=== PATIENT | female | born 1985 | race Caucasian/White ===

== ENCOUNTER 2024-11-17 12:10 | Outpatient (AMB) | payer MEDICARE, SELFPAY ==
--- NOTE | 2024-11-17 12:25 | A.OFFVIS_ITS ---
Intake Visit Reasons: 3 Month Migrane Allergies No Known Allergies Allergy (Verified 11/17/24 12:32) Medication List - Last Reconciled 11/17/24 by Leila Galindo CNP lamotrigine 150 mg PO BID norethindrone (contraceptive) (Emzahh) 0.35 mg PO DAILY prazosin 1 mg PO BID sertraline 200 mg PO DAILY sumatriptan succinate mg PO topiramate 25 mg PO BID HPI Comments Details: 39-year-old woman with depression, anxiety, PTSD, insomnia, and migraine headaches. Migraines were about the same. She was getting headache about 3x/week with photophobia, sonophobia, and nausea. They could be triggered by the heat. Sumatriptan as needed helped some. Sleep was up and down. [facility] Medical History (Updated 11/17/24 @ 12:27 by Leila Galindo CNP) Migraine without aura Review of Systems Const Denies chills, Denies daytime sleepiness, Denies difficulty sleeping, Denies fatigue, Denies fever(s), Denies frequent falls, Reports headache(s), Denies increased appetite, Denies poor appetite, Denies snoring, Denies weakness, Denies weight gain and Denies weight loss Eyes Denies loss of vision ENT Denies vertigo, Denies dizziness and Reports headache(s) Card Denies chest pain at rest, Denies chest pain with activity, Denies syncope, Denies leg edema and Denies palpitations Resp Denies snoring GI Denies constipation, Denies heartburn, Denies diarrhea and Denies nausea Denies urinary frequency, Denies urinary incontinence and Denies urinary urgency Musc Denies abnormal gait, Denies numbness and Denies tingling Skin/Breast Denies dry skin and Denies rash Neuro Denies abnormal gait, Denies vertigo, Denies dizziness, Denies syncope, Denies frequent falls, Reports headache(s), Denies lack of coordination, Denies loss of vision, Denies memory loss, Denies numbness, Denies restless legs, Denies seizure-like activity, Denies tingling, Denies paresthesias, Denies tremor(s) and Denies weakness Psych Denies anxiety, Denies depression, Denies auditory hallucinations, Denies memory loss, Denies visual hallucinations and Denies suicidal ideation Endo Denies fatigue and Denies palpitations Physical Exam Const Other: General Appearance:? normal, in no acute distress. Skin:? no rashes, no significant birthmarks. Heart:? S1, S2 normal, no murmurs. Lungs:? clear anteriorly and posteriorly. Extremities:? no edema. Psych:? alert, oriented, cognitive function intact, cooperative with exam. Neuro Other: Mental Status:?Normal attention, orientation, memory and affect.? Cranial Nerves:?Pupils are equal, round and reactive to light. External occular muscles are intact. Visual crowe are full. Face is symmetrical. Facial sensations are normal. Tongue is midline. Palate elevates symmetrically. Shoulder shrugging is normal. Hearing to bedside conversation is normal. Sensory Exam:?....? Coordination:?No ataxia,?no titubation.? Gait Exam: Within normal limits. Extrapyramidal System:?No tremor, rigidity with normal facial expressions.? Pronator Drift:?Not present.? Involuntary Movements:?No tremors seen.? Speech:?Normal.? Assessment & Plan Assessment & Plan (1) Migraine without aura: Code(s): G43.009 - Migraine without aura, not intractable, without status migrainosus Category: Medical Qualifiers: Status migrainosus presence: without status migrainosus Intractability: not intractable Qualified Code(s): G43.009 - Migraine without aura, not intractable, without status migrainosus Plan: Increase topiramate 50mg 1 tablet twice a day. Continue sumatriptan 50mg 1 tablet as needed for migraine. Start ondansetron 4mg 1 tablet as needed for nausea, use/side effects reviewed. Medications: New sumatriptan succinate take 1 tab at onset of headache; if no relief may repeat 1 tab after at least 2 hrs; PO 10 tabs 5RF 30 days topiramate 50 mg PO BID 180 tabs 0RF 90 days ondansetron 4 mg PO DAILY PRN 10 tabs 5RF nausea and vomiting 30 days Discontinued sumatriptan succinate Discontinued Reason: Order PO Coding Level of Care Code Est Pt Level 4 (31973) Diagnoses Migraine without aura and without status migrainosus, not intractable G43.009 Status migrainosus presence: without status migrainosus Intractability: not intractable
--- OUTSIDE RECORDS SUMMARY | 2024-11-17 13:32 | XMS_ITS | Clinical Summary ---
Author Organization [facility] Address [address] [place] [address] Phone Care Team Providers Care Regional Marketing Manager Name Role Phone Lamin Villavicencio MD Primary Care Provider [phone] Allergies No known active allergies Medications melatonin 5 mg tablet Take 1 Tablet by mouth. 02/13/2022 Active hydrOXYzine pamoate (VISTARIL) 25 mg capsule TAKE 1 CAPSULE BY MOUTH two (2) times a day NEEDED FOR ANXIETY 11/16/2021 Active lamoTRIgine (LaMICtal) 100 mg tablet TAKE 1 TABLET BY MOUTH two (2) times a day 05/30/2022 Active melatonin 3 mg capsule Take by mouth. Active prazosin (MINIPRESS) 1 mg capsule TAKE 1 TO 3 CAPSULES BY MOUTH AT BEDTIME NEEDED 04/30/2023 Active sertraline (ZOLOFT) 100 mg tablet Take 1 Tablet by mouth daily. 05/07/2023 Active topiramate (TOPAMAX) 25 mg tablet Take 1 Tablet by mouth. 06/05/2022 Active amitriptyline (ELAVIL) 10 mg tablet 12/16/2023 Active meloxicam (MOBIC) 15 mg tablet 11/11/2023 Active phentermine (ADIPEX-P) 37.5 mg tablet Take 1 tablet (37.5 mg total) by mouth 1 (one) time each day before breakfast. Max Daily Amount: 37.5 mg 02/28/2024 Active norethindrone (ANGÉLICA ROSUE H EATHER,MICRONOR ) 0.35 mg tablet Take 1 tablet (0.35 mg total) by mouth 1 (one) time each day. 28 tablet 11 05/12/2024 05/11/19 26 Active Active Problems Problem Noted Date Diagnosed Date Depression 03/03/2024 Overview (03/03/2024): Receives counseling services @ [facility]. PCOS (polycystic ovarian syndrome) 10/09/2017 Immunizations Name Administration Dates Next Due HepB-CpG (Heplisav-B) 18yo and older 07/19/2023, 07/18/2022 Hepatitis A-Hepatitis B Adul t (Twinrix) 18yo and older 06/17/2012 Hepatitis B Pediatric (Enger ix B; Recombivax HB) to less than 20 yo 12/18/2012,06/17/2012,05/20/2012 Influenza Quadravalent, MDCK , 0.5ml, preservative free (Flucelvax) 6mo and older 01/02/2023,01/18/2022 Influenza Quadrivalent, 0.5m l, preservative free (Fluarix; FluLaval; Fluzone) ages 6mo and older (Afluria) 3yo and older 01/16/2021,12/27/2017,01/17/2017 Influenza trivalent, 0.5mL, preservative free (Fluarix; FluLaval; Fluzone) ages 6mo and older (Afluria) 3 years and older 12/15/2014 Influenza trivalent, recombi nant, 0.5mL, preservative free (Flublok) 9yo and older 01/10/2024 Influenza trivalent, with pr eservative (Fluzone; Afluria) 6mo and older 01/30/2014,01/07/2014 Influenza, live, intranasal, quadrivalent (FluMist) 2yo to less than 50yo 01/18/2022 Pfizer SARS-CoV-2 COVID-19, mRNA, LNP-S, preservative free 07/27/2020,07/06/2020 Td Tetanus diptheria, preser vative free (Tenivac) 7yo and older 12/27/2017 Td, Unspecified 12/27/2017 Tdap Tetanus diptheria acell ular pertussis (Boostrix; Adacel) 7yo and older 02/28/2019 Surgical History Surgery Date Site/Laterality Comments HAND SURGERY 2011 Left PROCEDURE: HISTORICAL HAND SURGERY; COMMENT: left 5th finger FOOT SURGERY 2019 Right PROCEDURE: HISTORICAL FOOT SURGERY; COMMENT: cut to the sole requiering stiches OTHER SURGICAL HISTORY 2022 PROCEDURE: HISTORY OTHER; COMMENT: gallbladder CHOLECYSTECTOMY Medical History Medical History Date Comments Depression DX:Depression Anxiety DX:Anxiety Carpal tunnel syndrome DX:Carpal tunnel syndrome Mental developmental delay 11/22/2010-present DX: Mental developmental delay Vitamin D deficiency 06/07/2015-present DX:Vitamin D deficiency 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 DX:Insomnia due to anxiety and fear Polycystic ovary syndrome Migraine Family History Medical History Relation Name Comments No Known Problems Brother Arthritis Mother Valeria aranda Diabetes Mother Valeria aranda No Known Problems Sister x4 Other: autism Son Breast cancer Neg Hx Colon cancer Neg Hx Ovarian cancer Neg Hx Uterine cancer Neg Hx Relation Name Status Comments Brother Alive Father Alive Mother Valeria aranda Alive Sister x4 Alive Son Social History Tobacco Use Types Packs/Day Years Used Date Smoking Tobacco: Former Cigarettes 3 15 Q uit: 01/01/2014 Smokeless Tobacco: Never Alcohol Use Standard Drinks/Week Comments No 0 (1 standard drink = 0.6 oz pur e alcohol) Housing Instability Answer Date Recorde d Are you worried that in the next 2 months you may not have stable housing? No 05/09/2024 Food Access & Nutrition Answer Date Rec orded Do you have access to a vari ety of food including fruits and vegetables? No 05/09/2024 Access to Healthcare Answer Date Record ed Within the last 3 months, ho w many times did you visit the emergency department for your medical care? 0 05/09/2024 Health Literacy Answer Date Recorded How often do you need to hav e someone help you when you read instructions, pamphlets, or other written material from your doctor or pharmacy? Sometimes 05/09/2024 Caregiver: How often do you need to have someone help you when you read instructions, pamphlets, or other written material from your doctor or pharmacy? Not on file 05/09/2024 Financial Risk Answer Date Recorded How hard is it for you to pa y for the very basics like food, housing, medical care, and air conditioning / heating? Somewhat hard 05/09/2024 Transportation Answer Date Recorded Has the lack of transportati on kept you from meetings, work, or from getting things needed for daily living? No Has the lack of transportati on kept you from medical appointments or from getting medications? No 05/09/2024 Social Isolation Answer Date Recorded How often do you feel lonely or isolated from those around you? Sometimes 05/09/2024 Food Risk Answer Date Recorded Within the past 12 months we worried whether our food would run out before we got money to buy more. Often true 05/09/2024 Within the past 12 months th e food we bought just didn't last and we didn't have money to get more. Often true 05/09/2024 Dependent Care Answer Date Recorded Do you need help finding or paying for care for your loved ones. For example, child care giver or elderly care for an older adult? No 05/09/2024 Education Answer Date Recorded Do you think completing more education or training, like finishing a GED, going to college, or learning a trade, would be helpful for you? N/A 05/09/2024 Employment and Income Answer Date Recor ded During the last four weeks, have you been actively looking for work? Patient declined 05/09/2024 Living Situation Answer Date Recorded What is your living situation? 0 05/09/2024 Comments No Sex and Gender Information Value Date Recorded Sex Assigned at Female 11/03/2024 12:59 PM EDT Legal Sex Female 6:15 AM EST Gender Identity Female 11/03/2024 12:59 PM EDT Sexual Orientation Straight 11/03/2024 12 :59 PM EDT Occupation Industry Job Start Date Job End Date Disabled Not on file Not on file Not on file Obstetrics History Para Term AB IAB SAB Ectopic Multiple Livin g Live Births 2 2 2 2 2 Date Outcome GA Total Labor Labor/2nd/3rd Weight Sex Type Anes PTL Delilah A1 A5 Name Clin 2011 Term F Vag-S pont Living 2013 Term M Vag-S pont Living Last Filed Vital Signs Vital Sign Reading Time Taken Comments Blood Pressure 106/75 05/12/2024 10:50 AM EST Pulse 70 05/12/2024 10:50 AM EST Temperature - - Respiratory Rate - - Oxygen Saturation - - Inhaled Oxygen Concentration - - Weight 89.8 kg (198 lb) 05/12/2024 10:50 AM EST Height 157.5 cm (5' 2 ) 05/12/2024 10:50 AM EST Body Mass Index 36.21 05/12/2024 10:50 AM EST Plan of Treatment Upcoming Encounters Date Type Department Care Team (Late st Contact Info) Description 12/10/2024 1:30 PM EDT Office Visit Obstetrics & Gynecology - [address] [id number] Lolita Stafford, CNM [address] [place] [address] Health Maintenance Due Date Last Done Comments COVID-19 Vaccine ( season) 2023 07/19/2023, 02/10/2022, 02/22/2021, Additional history exists Cervical Cancer Screening: HPV 11/25/2024 11/26/2019 Influenza Vaccine (#1) 2024 , 01/02/2023, 01/18/2022, Additional history exists Social Influencers of Health Screening 05/09/2025 05/09/2024 Cholesterol Screening (Lipid Panel) 07/19/2027 07/18/2022, 07/18/2022, 05/16/2017 DTaP,Tdap,and Td Vaccines (4 - Td or Tdap) 02/28/2029 02/28/2019, 12/27/2017, 12/27/2017 Hepatitis A Vaccines Aged Out 06/17/2012 No long er eligible based on patient's age to complete this topic HIV Screening Completed 11/26/2019, 05/16/2017 Hepatitis C Screening Completed 03/21/2021, 021 Hepatitis B Vaccines Completed 07/19/2023, 07/18/2022, 12/18/2012, Additional history exists Depression Screening Completed 05/09/2024 HIB Vaccines Aged Out No longer eligi ble based on patient's age to complete this topic HPV Vaccines Aged Out No longer eligi ble based on patient's age to complete this topic IPV Vaccines Aged Out No longer eligi ble based on patient's age to complete this topic MMR Vaccines Aged Out No longer eligi ble based on patient's age to complete this topic Meningococcal ACWY Vaccine Aged Out N o longer eligible based on patient's age to complete this topic Meningococcal B Vaccine Aged Out No l onger eligible based on patient's age to complete this topic Pneumococcal Vaccine: Pediatrics (0 to 5 Years) and At-Risk Patients (6 to 49 Years) Aged Out No longer eligible based on patient's age to complete this topic RSV Immunization Patients Under 20 months Aged Out No longer eligible based on patient's age to complete this topic Varicella Vaccines Aged Out No longer eligible based on patient's age to complete this topic Procedures Procedure Name Priority Date/Time Associated Diagnosis Comments LIPID PANEL Routine 07/18/2022 HEPATITIS C SCREENING Routine 03/21/2021 HPV Routine 11/26/2019 HIV SCREENING Routine 11/26/2019 from Last 3 Months or Most Recently Relevant to Health Maintenance Results * Lipid panel (07/18/2022) [facility] LDL/HDL Ratio 0 Comment:No Interpretation, A bstracted Triglycerides 0 mg/dL Comment:No Interpretation, A bstracted Cholesterol 0 mg/dL Comment:No Interpretation, A bstracted HDL 0 mg/dL Comment:No Interpretation, A bstracted LDL Cholesterol 0 mg/dL Comment:No Interpretation, A bstracted Blood Venous blood specimen / Unknown us Historical Provider LAB BLOOD ORDERABLES Tatyana l Result * Hepatitis C Screening (03/21/2021) [facility] Hepatitis C Screening Abstracted us Historical Provider HEALTH MAINTENANCE Final Result * Cervical Cancer Screening: HPV (11/26/2019) [facility] Cervical Cancer Screening: HPV Negative, Abstracted us Historical Provider HEALTH MAINTENANCE Final Result * HIV Screening (11/26/2019) HIV Screening Abstracted Historical Provider HEALTH MAINTENANCE Final Result from Last 3 Months or Most Recently Relevant to Health Maintenance Insurance MEDICA[place] - [place] [facility] Advance Directives Documents on File Type Date Recorded 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
--- OUTSIDE RECORDS SUMMARY | 2024-11-17 13:32 | XMS_ITS | Clinical Summary ---
Author Organization [facility] Address [address] [place] [address] Care Team Providers Care Job Analysis Manager Name Role Phone Sadie Corbin PA-C Primary Care Provider + [phone] Source Comments PLEASE NOTE, if this patient is a minor, it may be UNLAWFUL to discuss sensitive information that is contained in these records (such as FAMILY PLANNING, MENTAL HEALTH or SUBSTANCE ABUSE) with the minor patient's parent or other person without the patient's specific authorization.[facility] Allergies No known active allergies Medications arm brace (NEOPRENE WRIST SPLINT SUPPORT)Indicat ions:Paresthesi a of hand, bilateral Bilateral cock up wrist splints given 01/18/20 17 Active miscellaneous medical supply miscIndications :Carpal tunnel syndrome, bilateral by miscellaneous route nightly at bedtime Carpal tunnel hands wrist support brace to use during the night. Right and left hand wrist need it. 1 Each 09/18/19 22 Active prazosin (MINIPRESS) 1 mg capsule Take 1 mg by mouth nightly at bedtime 05/31/19 24 Active lamoTRIgine (LAMICTAL) 200 mg tablet Take 200 mg by mouth once daily Active sertraline (ZOLOFT) 100 mg tabletIndicatio ns:Anxiety and depression Take 1 Tablet by mouth once daily 30 Tablet 07/19/19 24 Active melatonin 5 mg tab Take 1 Tablet by mouth nightly at bedtime 90 Tablet 1 02/12/20 24 Active meloxicam (MOBIC) 15 mg tabletIndicatio ns:Carpal tunnel syndrome, bilateral Take 1 Tablet by mouth once daily 30 Tablet 05/12/19 25 Active clindamycin-mary kay zoyl peroxide (BENZACLIN) 1-5 % gelIndications: Acne, unspecified acne type Apply topically 2 (two) times daily 50 g 07/29/19 25 Active topiramate (TOPAMAX) 25 mg tabletIndicatio ns:Persistent headaches Take 1 Tablet by mouth nightly at bedtime. 30 Tablet 3 10/25/19 25 Active SUMAtriptan succinate (IMITREX) 100 mg tablet Take 100 mg by mouth. Active tirzepatide, weight loss, (ZEPBOUND) 2.5 mg/0.5 mL pnijIndications :Class 2 obesity without serious comorbidity with body mass index (BMI) of 36.0 to 36.9 in adult, unspecified obesity type Inject 2.5 mg into the skin once a week For obesity. 2 mL 10/29/19 25 Active hydrOXYzine pamoate (VISTARIL) 25 mg capsule TAKE 1 CAPSULE BY MOUTH two (2) times a day NEEDED FOR ANXIETY 11/17/19 22 025 Discontinu ed(Patient Stopped Taking) phentermine (ADIPEX-P) 37.5 mg tabletIndicatio ns:Class 2 obesity without serious comorbidity with body mass index (BMI) of 36.0 to 36.9 in adult, unspecified obesity type Take 1 Tablet by mouth every morning before breakfast 30 Tablet 2 01/10/20 24 025 Discontinu ed(Therapy completed/ Not needed) topiramate (TOPAMAX) 25 mg tabletIndicatio ns:Persistent headaches Take 1 Tablet by mouth nightly at bedtime 30 Tablet 3 05/12/19 25 025 Discontinu ed(Reorder (E-Cancel Not Sent)) Active Problems Problem Noted Date Diagnosed Date Foot pain, right,plantar 07/12/2019 Overview (10/07/2019): 09/28/2019: [facility]: Xray of rt foot: Impression: 1. No significant osseous abnormality. 2. Focal skin thickening along the plantar aspect of the foot in the area of interest, unchanged from the previous study. 04/13/2019: [facility]: Xray of rt foot: IMPRESSION: Mild soft tissue swelling at the plantar aspect of the midfoot. Otherwise, normal examination. No radiopaque foreign body is seen. No change since 02/28/2019. 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 The uterus is normal in size but demonstrated heterogeneous echotexture. NO uterine mass is seen. 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 She is taking vitamins. Desires referral to reproductive endocrine. 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 Mild-moderate on L and mild on the right. ON LEFT: nerve conduction study evidence of focal sensory and motor fiber demyelination and sensory axon loss. There is EMG evidence of chronic degeneration affecting the L abductor pollicis brevis muscle. ON RIGHT: there is focal sensory > motor fiber demyelination without axon loss. 02/25/18 - [facility] OT - 2x/wk x 9 visits 09/25/21: EMG results [facility] on 08/29/21. Impression: -Mild to moderate left, mild right median neuropathy across the carpal tunnel Vitamin D deficiency 06/07/2015 Anxiety and depression 11/22/2010 Overview (06/07/2015): Psych f/u [facility]. Mental developmental delay 11/22/2010 Insomnia due to anxiety and fear 11/22/2010 Obesity Fracture of phalanx of left little finger Overview (12/17/2012): Displaced fracture left small finger middle phalanx S/p ORIF 05/23/[address] Schneider at [facility]. Encounters Date Type Department Care Team Description 11/05/2024 Results Follow-Up [address] [phone] Sultana Diaz FNP 10/28/2024 1:20 PM EDT Office Visit [address] [phone] Sultana Diaz FNP from Last 3 Months Immunizations Immunization Administration Dates Next Due Flu, Cell Culture based, Pre servative Free, 6m+, Flucelvax 01/18/2022 Flu, Preservative Free 01/16/2021,12/27/2017, HEP A-HEP B ([place]) 06/17/2012 HEP B, PED/ADOL (MILJTSQ-M-WHDL/RECOMBIVAX-PEDS) 12/18/2012,06/17/2012,05/20/2012 Hep B,adult,adjuvanted (HEPLISAV) 07/19/2023, INFLUENZA, SEASONAL, INJECTABLE 01/03/20 23,12/15/2014,01/30/2014,2013,11/29/2012 INFLUENZA, SEASONAL, INJECTA BLE, PRESERVATIVE FREE 12/15/2014 Influenza (FLUBLOK),recombinant,injectable,pres ervative Free 01/10/2024 Pfizer COVID-19 (Comirnaty), Mrna, Lnp-s, Pf, Sherif-sucrose, 30 Mcg/0.3 Ml, 12yr+ 07/19/2023 TDAP 02/28/2019 Td (adult), 5 Lf tetanus tox oid (Tenivac), preservative free 12/27/2017 Family History Medical History Relation Name Comments Diabetes Father Diabetes Maternal Grandmother Arthritis Mother Diabetes Mother Relation Name Status Comments Father Alive Maternal Grandmother Alive Mother Alive Social History Tobacco Use Types Packs/Day Years Used Date Smoking Tobacco: Former Cigarettes Smokeless Tobacco: Never Tobacco Cessation:Counseling Given: Not Answered Comments:quit in Aug 2013 Alcohol Use Standard Drinks/Week Comments Not Currently 0 (1 standard drink = 0.6 oz pur e alcohol) socc Social Connections Answer Date Recorded How often do you feel lonely or isolated from th ose around you? 1 03/09/2024 Financial Resource Strain Answer Date R ecorded Hard to pay for: Food 1 03/09/2024 Stress Answer Date Recorded Do you feel these kinds of stress these days? 1 03/09/2024 Physical Activity Answer Date Recorded Physical Activity 0 11/22/2018 Food Insecurity Answer Date Recorded Hard to pay for: Food 1 03/09/2024 Transportation Needs Answer Date Record ed Hard to pay for: Transportation 1 03/09/2024 Housing Stability Answer Date Recorded Hard to pay for: Rent/Mortgage payment 1 03/09/2024 Safety and Environment Answer Date Preet rded Safety 1 07/19/2023 Utilities Answer Date Recorded Hard to pay for: Utilities 1 03/09 Employment Answer Date Recorded Stress 0 06/19/2021 Comments No Sex and Gender Information Value Date Recorded Sex Assigned at Female 01/17/2017 1:28 PM PDT Legal Sex Female 11:36 AM PDT Gender Identity Female 01/17/2017 1:28 PM PDT Sexual Orientation Straight 01/17/2017 1: 28 PM PDT Occupation Industry Job Start Date Job End Date Unemployed Not on file Not on file Not on file Last Filed Vital Signs Vital Sign Reading Time Taken Comments Blood Pressure 112/78 10/28/2024 1:10 PM EDT Pulse 78 10/28/2024 1:10 PM EDT Temperature 36.9 C (98.5 F) 10/28/2024 1:10 PM EDT Respiratory Rate 16 10/28/2024 1:10 PM EDT Oxygen Saturation 98% 10/28/2024 1:10 PM EDT Inhaled Oxygen Concentration - - Weight 93 kg (205 lb) 10/28/2024 1:10 PM EDT Height 160 cm (5' 3 ) 10/28/2024 1:10 PM EDT Body Mass Index 36.31 10/28/2024 1:10 PM EDT Plan of Treatment Upcoming Encounters Date Type Department Care Team (Late st Contact Info) Description 12/07/2024 1:00 PM EDT Office Visit [facility] [address] [place] [phone] Celina Vail [address] [place] [address] Health Maintenance Due Date Last Done Comments Dental FMX/Pano 1986 Medicare Annual Wellness Visit 2004 Pap Smear 10/03/2021 10/03/2018, 01/28/2015 Cervical Cancer Screening 10/04/2023 HPV Screening 10/04/2023 10/03/2018 Pap + HPV 10/04/2023 10/03/2018 [id number] ( season) 2023 07/19/2023, 02/10/2022, 02/22/2021, Additional history exists Alcohol and Drug Screen 04/01/2024 03/09/20 24, 09/16/2023, 07/19/2023, Additional history exists Depression Monitoring 06/07/2024 03/09/2024 , 01/10/2024, 09/16/2023, Additional history exists Relationship Safety Screening/Counseling 07/18/2024 07/19/2023, 07/18/2022, 03/21/2021, Additional history exists Imm-Influenza (#1) 2024 01/10/2024, 1 , 01/18/2022, Additional history exists Dental Perio Charting 12/05/2024 12/04/2023, 022 Anxiety Screening 03/09/2025 03/09/2024 Dental BW 06/05/2025 06/03/2024, 09/0 07/2023, 01/26/2022 Dental Examination 06/05/2025 06/03/2024, 0 12/04/2023, 07/19/2023 (Managed by Outside Provider), Additional history exists Dental Prophy 06/05/2025 06/03/2024, 09/0 07/2023, 07/19/2023 (Managed by Outside Provider), Additional history exists Tobacco Screening 10/24/2025 10/24/2024 Hypertension Screening (#1) 10/28/2025 Diabetes Screening 10/29/2027 10/28/2024, 0 10/28/2024, 07/18/2022, Additional history exists Lipid Screening 10/29/2027 10/28/2024, 06/30, 07/18/2022, Additional history exists Imm-DTaP/Tdap/Td (2 - Td or Tdap) 02/28/2029 019, 12/27/2017 HIV Screening Completed 11/26/2019, 05/16/2017 Hepatitis C Screening Completed 03/21/2021 Imm-Hepatitis B Completed 07/19/2023, 06/30, 12/18/2012, Additional history exists Cervical Ablation/Cold-Knife Conization Discontinued Cervical Cryotherapy Discontinued Colposcopy Discontinued Endometrial Biopsy Discontinued Excision/Leep Discontinued HPV Genotyping Discontinued Vaginal Pap Discontinued Vulvoscopy Discontinued Procedures Procedure Name Priority Date/Time Associated Diagnosis Comments HGBA1C W/MPG Routine 10/28/2024 2:03 PM EDT Class 2 obesity without serious comorbidity with body mass index (BMI) of 36.0 to 36.9 in adult, unspecified obesity type Infertility counseling Hypersomnia TSH W/RFLX FREE T4 Routine 10/28/2024 2: 03 PM EDT Class 2 obesity without serious comorbidity with body mass index (BMI) of 36.0 to 36.9 in adult, unspecified obesity type Infertility counseling Hypersomnia LIPID PANEL Routine 10/28/2024 2:03 PM EDT Class 2 obesity without serious comorbidity with body mass index (BMI) of 36.0 to 36.9 in adult, unspecified obesity type Infertility counseling Hypersomnia BLOOD COUNT COMPLETE AUTO&AUTO DIFRNTL WBC Routine 10/28/2024 2:03 PM EDT Class 2 obesity without serious comorbidity with body mass index (BMI) of 36.0 to 36.9 in adult, unspecified obesity type Infertility counseling Hypersomnia COMPREHENSIVE METABOLIC PANEL Routine 10/28/2024 2:03 PM EDT Class 2 obesity without serious comorbidity with body mass index (BMI) of 36.0 to 36.9 in adult, unspecified obesity type Infertility counseling Hypersomnia BITEWINGS - FOUR RADIOGRAPHIC IMAGES Routine 06/03/2024 1:00 PM EST Encounter for dental examination and cleaning without abnormal findings PROPHYLAXIS - ADULT Routine 06/03/2024 1 :00 PM EST Encounter for dental examination and cleaning without abnormal findings PERIODIC ORAL EVALUATION ESTABLISHED PATIENT Routine 06/03/2024 1:00 PM EST Encounter for dental examination and cleaning without abnormal findings COMP PERIODONTAL EVALUATION - NEW/EST PATIENT Routine 12/04/2023 1:00 PM EDT Encounter for dental examination and cleaning with abnormal findings HEPATITIS C AB W/RFLX HCV RNA, QT, RT PCR Routine 03/21/2021 10:51 AM EST Annual physical exam PAP SMEAR W/HPV, ABSTRACTED Routine 10/03/2018 8:34 AM EDT ANTIBODY HIV-1&HIV-2 SINGLE RESULT Routine 05/16/2017 1:55 PM EST Routine general medical examination at a health care facility from Last 3 Months or Most Recently Relevant to Health Maintenance Results * HGBA1C W/MPG Routine (10/28/2024 2:03 PM EDT) HEMOGLOBIN A1C 5.6 <5.7 % 10/29/2024 5:01 AM EDT [employer] [facility] MEAN PLASMA GLUCOSE 122 mg/dL (calc) 10/29/2024 5:01 AM EDT [employer] [facility] Blood Blood / Unknown 10/28/2024 2 :03 PM EDT 10/29/2024 2:36 AM EDT Narrative e-Tag [facility] - 10/29/2024 5:15 AM EDT FASTING:NO For the purpose of screening for the presence of diabetes: . <5.7% Consistent with the absence of diabetes 5.7-6.4% Consistent with increased risk for diabetes (prediabetes) > or =6.5% Consistent with diabetes . This assay result is consistent with a decreased risk of diabetes. . Currently, no consensus exists regarding use of hemoglobin A1c for diagnosis of diabetes in children. . According to [place] [employer] (ADA) guidelines, hemoglobin A1c <7.0% represents optimal control in non- diabetic patients. Different metrics may apply to specific patient populations. Standards of Medical Care in Diabetes(ADA). . us Sultana Diaz [facility] - BLOOD DRAW Final Result Performing Organization Address [facility]/ZIP Co de Phone Number [employer] [address] [address], [employer] [address] [phone] * TSH W/RFLX FREE T4 Routine (10/28/2024 2:03 PM EDT) TSH W/REFLEX TO FT4 0.42 mIU/L 10/29/2024 5:32 AM EDT [facility] Blood Blood / Unknown 10/28/2024 2 :03 PM EDT 10/29/2024 4:47 AM EDT Narrative [facility] - 10/29/2024 5:44 AM EDT FASTING:NO Reference Range . > or = 20 Years 0.40-4.50 . Ranges First trimester 0.26-2.66 Second trimester 0.55-2.73 Third trimester 0.43-2.91 us Sultana Diaz [facility] - BLOOD DRAW Final Result Performing Organization Address [facility]/ZIP Co de Phone Number [employer] [address] [address], [employer] [address] [phone] * (ABNORMAL) BLOOD COUNT COMPLETE AUTO&AUTO DIFRNTL WBC Routine (10/28/2024 2:03 PM EDT) WHITE BLOOD CELL COUNT 8.9 3.8 - 10.8 Thousand/ uL 10/29/2024 4:18 AM EDT [facility] RED BLOOD CELL COUNT 5.23(H) 3.80 - 5.10 Million/u L 10/29/2024 4:18 AM EDT [employer] [facility] HEMOGLOBIN 14.0 11.7 - 15.5 g/dL 10/29/2024 4:18 AM EDT M/A-COM HEMATOCRIT 44.7 35.0 - 45.0 % 10/29/2024 4:18 AM EDT [employer] [facility] MCV 85.5 80.0 - 100.0 fL 10/29/2024 4:18 AM EDT [employer] [facility] MCH 26.8(L) 27.0 - 33.0 pg 10/29/2024 4:18 AM [employer] [facility] MCHC 31.3(L) 32.0 - 36.0 g/dL 10/29/2024 4:18 AM [employer] [facility] RDW 13.0 11.0 - 15.0 % 10/29/2024 4:18 AM [employer] [facility] PLATELET COUNT 226 140 - 400 Thousand/ uL 10/29/2024 4:18 AM [employer] [facility] MPV 11.8 7.5 - 12.5 fL 10/29/2024 4:18 AM [employer] [facility] ABSOLUTE NEUTROPHILS 5,233 1,500 - 7,800 cells/uL 10/29/2024 4:18 AM [employer] [facility] ABSOLUTE LYMPHOCYTES 2,732 850 - 3,900 cells/uL 10/29/2024 4:18 AM [employer] [facility] ABSOLUTE MONOCYTES 632 200 - 950 cells/uL 10/29/2024 4:18 AM [employer] [facility] ABSOLUTE EOSINOPHILS 240 15 - 500 cells/uL 10/29/2024 4:18 AM [employer] [facility] ABSOLUTE BASOPHILS 62 0 - 200 cells/uL 10/29/2024 4:18 AM [employer] [facility] NEUTROPHILS PCT 58.8 % 4:18 AM [employer] [facility] LYMPHOCYTES 30.7 % 10/29/2024 4:18 AM [employer] [facility] MONOCYTES 7.1 % 10/29/2024 4:18 AM [employer] [facility] EOSINOPHILS 2.7 % 10/29/2024 4:18 AM [employer] [facility] BASOPHILS 0.7 % 10/29/2024 4:18 AM [employer] [facility] Blood Blood / Unknown 10/28/2024 2 :03 PM EDT 10/29/2024 2:36 AM EDT [employer] [facility] - 10/29/2024 4:50 AM EDT FASTING:NO For adults, a slight decrease in the calculated MCHC value (in the range of 30 to 32 g/dL) is most likely not clinically significant; however, it should be interpreted with caution in correlation with other red cell parameters and the patient's clinical condition. Sultana Diaz [employer] [facility] - BLOOD DRAW Final Result [facility] [address] [place] [id number], [employer] [address] [phone] * (ABNORMAL) LIPID PANEL Routine (10/28/2024 2:03 PM EDT) [facility] CHOLESTEROL, TOTAL 183 <200 mg/dL 10/29/2024 6:13 AM EDT [employer] [facility] HDL CHOLESTEROL 57 > OR = 50 mg/dL 10/29/2024 6:13 AM EDT [employer] [facility] TRIGLYCERIDES 148 <150 mg/dL 10/29/2024 6:13 AM EDT [employer] [facility] LDL-CHOLESTEROL 101(H) mg/dL (calc) 10/29/2024 6:13 AM EDT [employer] [facility] CHOL/HDLC RATIO 3.2 <5.0 (calc) 10/29/2024 6:13 AM EDT [employer] [facility] NON-HDL CHOLESTEROL 126 <130 mg/dL (calc) 10/29/2024 6:13 AM EDT [facility] Blood Blood / Unknown 10/28/2024 2 :03 PM EDT 10/29/2024 4:47 AM EDT Narrative e-Tag [facility] - 10/29/2024 6:16 AM EDT FASTING:NO Reference range: <100 . Desirable range <100 mg/dL for primary prevention; <70 mg/dL for patients with CHD or diabetic patients with > or = 2 CHD risk factors. . LDL-C is now calculated using the Deonte calculation, which is a validated novel method providing better accuracy than the Friedewald equation in the estimation of LDL-C. Say OLSON et al. MARGARET. 2013;310(19): 4577-0367 (http://education.[employer]ivo/faq/YRE063) For patients with diabetes plus 1 major ASCVD risk factor, treating to a non-HDL-C goal of <100 mg/dL (LDL-C of <70 mg/dL) is considered a therapeutic option. Sultana Diaz [facility] - BLOOD DRAW Final Result [employer] [facility] [address] [address], [employer] [facility] [address] [place] [address] * COMPREHENSIVE METABOLIC PANEL Routine (10/28/2024 2:03 PM EDT) GLUCOSE 74 65 - 139 mg/dL 10/29/2024 6:13 AM [employer] [facility] UREA NITROGEN (BUN) 10 7 - 25 mg/dL 10/29/2024 6:13 AM [employer] [facility] CREATININE (blood) 0.91 0.50 - 0.97 mg/dL 10/29/2024 6:13 AM [employer] [facility] EGFR 83 > OR = 60 mL/min/1. 73m2 10/29/2024 6:13 AM [employer] [facility] BUN/CREATININE RATIO SEE NOTE: 6 - 22 (calc) 10/29/2024 6:13 AM [employer] [facility] SODIUM 140 135 - 146 mmol/L 10/29/2024 6:13 AM [employer] POTASSIUM 4.2 3.5 - 5.3 mmol/L 10/29/2024 6:13 AM [employer] [facility] CHLORIDE 105 98 - 110 mmol/L 10/29/2024 6:13 AM [employer] [facility] CARBON DIOXIDE 31 20 - 32 mmol/L 10/29/2024 6:13 AM [employer] [facility] CALCIUM 9.4 8.6 - 10.2 mg/dL 10/29/2024 6:13 AM [employer] [facility] PROTEIN, TOTAL 7.3 6.1 - 8.1 g/dL 10/29/2024 6:13 AM [employer] [facility] ALBUMIN 4.3 3.6 - 5.1 g/dL 10/29/2024 6:13 AM [employer] [facility] GLOBULIN 3.0 1.9 - 3.7 g/dL (calc) 10/29/2024 6:13 AM EDT M/[facility] ALBUMIN/GLOBULI N RATIO 1.4 1.0 - 2.5 (calc) 10/29/2024 6:13 AM EDT [facility] BILIRUBIN, TOTAL 0.2 0.2 - 1.2 mg/dL 10/29/2024 6:13 AM EDT [facility] ALKALINE PHOSPHATASE 74 31 - 125 U/L 10/29/2024 6:13 AM EDT [facility] AST 17 10 - 30 U/L 10/29/2024 6:13 AM EDT [facility] ALT 15 6 - 29 U/L 10/29/2024 6:13 AM EDT [facility] Blood Blood / Unknown 10/28/2024 2 :03 PM EDT 10/29/2024 4:47 AM EDT Narrative [facility] - 10/29/2024 6:16 AM EDT FASTING:NO . Non-fasting reference interval . Not Reported: BUN and Creatinine are within reference range. . Sultana Emily [facility] - BLOOD DRAW Final Result [facility] [address] [place] [id number], [facility] [address] [place] [phone] * Hep C Antibody with Reflex HCV RNA (03/21/2021 10:51 AM EST) HEPATITIS C ANTIBODY NON-REACT MIREYA NON-REACT MIREYA [facility] SIGNAL TO CUT-OFF 0.01 <1.00 [facility] Comment: HCV antibody was non-reactive. There is no laboratory evidence of HCV infection. In most cases, no further action is required. However, if recent HCV exposure is suspected, a test for HCV RNA (test code 42524) is suggested. For additional information please refer to http://education.[employer]/faq/IHV64u7 (This link is being provided for informational/ educational purposes only.) Blood Blood / Unknown 03/21/2021 1 0:51 AM EST 03/21/2021 10:53 AM EST Narrative [facility] - 03/22/2021 5:11 AM EST FASTING:NO Sadie Corbin PA-C LAB - BLOOD DRAW Final Resul t [facility] [address] [place] [address], [facility] [address] [address] * PAP SMEAR W/HPV, ABSTRACTED (10/03/2018 8:34 AM EDT) PAP SMEAR INTERPRETATION NORMAL NORMAL [facility] HPV (HUMAN PAPILLOMA) NEGATIVE NEGATIVE [facility] HPV TYPE 16 NEGATIVE NEGATIVE [facility] HPV TYPE 18 NEGATIVE NEGATIVE [facility] Specimen from uterine cervix (specimen) Impressions [facility] - 10/03/2018 8:34 AM EDT ThinPrep Pap Negative for squamous intraepithelial lesion and malignancy HPV Negative Provider [facility] - PATHOLOGY AND CYTOLOGY AMB ULATORY Final Result [facility] [address] [place] [address], * HIV-1 & HIV-2 ANTIBODIES (05/16/2017 1:55 PM EST) HIV 1 AND 2 ANTIBODY SCREEN NEGATIVE NEGATIVE [facility] Comment: This assay is a 4th generation assay allowing for earlier detection of HIV infection by detecting the presence of the HIV-1 p24 antigen as well as the traditional antibodies to HIV type 1 (including group O) and type 2. Use of a 4th generation assay is the current CDC recommendation for HIV screening. Blood specimen (specimen) Blood / Unknown 05/16/2017 1:55 PM EST 05/16/2017 1:58 PM EST Narrative [facility] - 05/16/2017 4:41 PM EST [employer] 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
== END 2024-11-17 12:35 | disposition home or self-care (01) ==
LOC: HO.HSM 12:11
PROVIDERS: PCP Physician Assistant; Visit Provider Registered Nurse
DX: G43.009 Migraine without aura, not intractable, without status migrainosus (principal)
CPT/HCPCS: 99214

== ENCOUNTER → 2024-11-17 12:10 | Outpatient (BNVA) | payer MEDICARE, SELFPAY | PROVIDERS: PCP Physician Assistant; Visit Provider Registered Nurse | DX: G43.009 Migraine without aura, not intractable, without status migrainosus (principal) | CPT/HCPCS: 99212 ==